=== PATIENT | female | born 1930 | race Caucasian/White ===

== ENCOUNTER 2016-04-23 09:24 | Emergency (ER) | payer MEDICARE, OTHER ==
[~2016-04-23] VITALS: Ht 170.2 cm; Wt 70.0 kg
[2016-04-23 09:24] VITALS: Ht 170.2 cm; Wt 70.0 kg
[~2016-04-23 09:24] MED LIST: AMIODARONE 150 MG INJ ONE; CA CHLORIDE 10% 10 ML SYRINGE ONE; DEXTROSE 50% 50 ML SYRINGE ONE; DOPamine-D5W 1.6 MG/ML 250 ML ONE; EPINEPHrine 0.1 MG/ML SYG ONE; LIDOCAINE 100 MG SYRINGE ONE; MAGNESIUM SULFATE 1 GM/100 ML D5W IVPB ONE; NA BICARBONATE 8.4% 50 ML SYG ONE
[2016-04-23] MEDS ORDERED: EPINEPHrine 0.1 MG/ML SYG ONE ×2 (09:43→09:50)
--- NOTE | 2016-04-23 15:15 | ERA ---
ER Documentation Chief Complaint Date/Time DATE: 04/23/16 TIME: 15:00 Chief Complaint BROUGHT IN VIA EMS DUE TO CARDIAC ARREST HPI There is a old female is brought in by paramedics for cardiac arrest and intermittent return of pulses. Paramedics arrived CPR was in progress. They stated they had arrived and the patient was unresponsive in the head performed a blood glucose testing which came out to it that sugar of 26. Administered an amp of dextrose after the sugar was only in the 30s. She had lost pulses upon pickup in the form CPR in the field with the return of pulses after 2 of epinephrine. She was intubated in the field. She had vomited during intubation. Cardio exercise facility are significant only for encephalopathy, hypercholesterolemia, history of TIA and dementia. ROS Unobtainable Physical Exam Physical Exam Const: [] Unresponsive, pale Head: Atraumatic Eyes: Normal Conjunctiva, pupils fixed and dilated ENT: Normal External Ears, Nose and Mouth. ET tube in place. Neck: Supple Resp: Bilateral rhonchorous breath sounds with bag mask ventilation Cardio: Pulseless Abd: Soft, , non distended. No deformities Skin: No petechiae or rashes, pale, mottled Ext: No cyanosis, trace bilateral pedal edema, capillary refill greater than 5 seconds Neur: Unresponsive pupils fixed and dilated Procedures/MDM High-quality CPR was continued in the emergency room. ET tube was withdrawn a few centimeters to give equal breath sounds. Initially the patient was given epinephrine, sodium bicarbonate, dextrose, calcium chloride. Multiple rounds of CPR performed with a dose of bicarbonate in appropriate epinephrine the patient had return of spontaneous circulation with palpable pulses of both carotid and femoral regions. She had sinus rhythm on the monitor she also had runs of V. tach or nonsustained but were greater than 6 beats. Lungs is approximately 10 beats. She was given amiodarone 300 mg. She eventually bradyed down and lost pulses once again. CPR was continued multiple doses of epinephrine , bicarbonate were given. She is also given lidocaine. She had another episode of return of spontaneous circulation and was maintaining pulse proximal 0.5 minutes. The patient was bradycardic with a heart rate in the 50s and 40s dopamine drip was started. He received a liter of normal saline. Central line was placed the patient's blood pressure was very low. Levothyroid was started. Patient had loss of pulses again CPR was again performed. Limited cardiac bedside ultrasound was performed by myself which showed very limited cardiac motion. High-quality CPR was TAB performed and patient had either asystole or pulseless electrical activity. Patient was essentially coded for proximally 1 hour at which time further efforts of ACLS protocol resulted in no pulses and no cardiac motion. Time of was pronounced at 1005. Patient's son arrived shortly after no spoke with him at length answered all of his questions. Central line placement note, left femoral: I was cleaned with chlorhexidine, emergent central line was placed using Seldinger technique in which a 7 German triple-lumen catheter was placed under ultrasound guidance in the left femoral vein. There is good blood return. Patient was undergoing CPR at that time and tolerated the procedure well there were no complications. Critical care time 36 minutes: This does not include time spent performing CPR or any other billable procedures but does include postresuscitative care and emergent use of vasopressin medication, fluid administration, chart review, time spent at patient's bedside without leaving the room during periods where she had pulses, consideration of hypothermic protocol, almost continuous physical exams during the pulses times. Also includes discussion with patient's family answering questions. Departure Diagnosis: Primary Impression: Cardiac arrest Additional Impression: Signs of return of spontaneous circulation Condition: Serious YANHEMANT DO Apr 23, 2016 15:14
== END 2016-04-23 10:05 | disposition expired ==
LOC: E/R 09:24
DX: I46.9 Cardiac arrest, cause unspecified (principal)
CPT/HCPCS: 36556; 92950; J0171; 76937; J0282; J1265; J2001; J3475